=== PATIENT | female | born 1990 | race Caucasian/White ===

== ENCOUNTER 2022-03-12 14:38 | Emergency (ER) | payer OTHER ==
[~2022-03-12] VITALS: Ht 165.1 cm; Wt 127.2 kg
[2022-03-12 15:19] VITALS: BP 143/102
[2022-03-12] MEDS ORDERED: TETANUS-DIPTH-ACEL PERTUSSIS 0.5ML SYR Tdap IM ONE (17:00)
== END 2022-03-12 18:13 | disposition home or self-care (01) ==
LOC: ER 14:38
DX: S60.222A Contusion of left hand, initial encounter (principal); Z87.442 Personal history of urinary calculi; W54.0XXA Bitten by dog, initial encounter; Y93.89 Activity, other specified; Y92.89 Other specified places as the place of occurrence of the external cause; Y99.8 Other external cause status
CPT/HCPCS: 73120; 90471; 90715